=== PATIENT | male | born 1975 | race Caucasian/White ===

== ENCOUNTER → 2016-12-19 | Outpatient (CLI) | payer BC ==
[~2016-12-19] MED LIST: HYDR-3729 PO
--- NOTE | 2016-12-19 11:09 | Diagnostic Imaging Report ---
Scrotal ultrasound. INDICATION: Dull pain and lump. FINDINGS: The right testicle is 4.6 x 3.0 x 3.5 cm. The left testicle is 4.7 x 3.0 x 3.4 cm. The testicles are fairly homogeneous with no focal mass. There is a right epididymal cyst measuring 1.9 cm and another smaller adjacent cyst measuring 0.8 cm. Both appear simple with no solid components. There are bilateral small hydroceles slightly more prominent on the right side. Arterial and venous waveforms are demonstrated over the testicles. IMPRESSION: Small bilateral hydroceles. Right epididymal cyst. Dictated by: Dictated on workstation # [id number]
== END ==
LOC: RAD 09:55
PROVIDERS: ATTEND Nurse Practitioner Family
DX: N43.3 Hydrocele, unspecified (principal); N50.3 Cyst of epididymis
CPT/HCPCS: 76870

== ENCOUNTER 2017-08-31 18:27 | Emergency (ER) | payer BC ==
[~2017-08-31] VITALS: Ht 175.3 cm; Wt 113.4 kg
--- OUTSIDE RECORDS SUMMARY | 2017-08-31 18:32 | XMS REPORT | Continuity of Care Document ---
Author Author [facility] Organization [facility] Address Unknown Phone Unavailable Allergies Active Description Code Type Severity Reaction Onset Reported/Identified Relationship to Patient Clinical Status Yes No Known Drug Allergies [id number] Drug Allergy Unknown N/A 08/08/2014 Medications There is no data. Problems Date Dx Coded Attending Type Code Diagnosis Diagnosed By 08/11/2014 HANH HOLLAND MD Ot 706.2 08/19/2014 SKYLER PARRA, HANH Ot 239.89 08/19/2014 SKYLER PARRA, TAKAAKI Ot V72.84 08/19/2014 SKYLER PARRA, TAKAAKI Ot V74.8 08/19/2014 SKYLER PARRA, TAKTEA Ot 239.89 08/19/2014 SKYLER PARRA, TAKAAKI Ot V72.84 08/19/2014 SKYLER PARRA, KATYKI Ot V74.8 12/27/2016 JONI WALKER WATER SUPERINTENDENT Ot N43.3 HYDROCELE, UNSPECIFIED 12/27/2016 JONI WALKER WATER SUPERINTENDENT Ot N50.3 CYST OF EPIDIDYMIS 12/29/2016 JONI WALKER WATER SUPERINTENDENT Ot N43.3 HYDROCELE, UNSPECIFIED 12/29/2016 JONI WALKER WATER SUPERINTENDENT Ot N50.3 CYST OF EPIDIDYMIS 01/08/2017 JONI WALKER WATER SUPERINTENDENT Ot N43.3 HYDROCELE, UNSPECIFIED 01/08/2017 JONI WALKER WATER SUPERINTENDENT Ot N50.3 CYST OF EPIDIDYMIS Procedures There is no data. Results There is no data. Encounters ACCT No. Visit Date/Time Discharge Status Pt. Type Provider Facility Loc./Unit Complaint [id number] 12/19/2016 09:55:00 12/19/2016 23:59:59 CLS Outpatient JONI WALKER APRN [facility] RAD RT TESTICULAR PAIN, RT TESTICULAR MASS [id number] 08/11/2014 07:24:00 08/11/2014 11:40:00 DIS Outpatient HANH HOLLAND MD [facility] [id number] 08/08/2014 07:53:00 08/08/2014 23:59:59 CLS Outpatient HANH HOLLAND MD [facility] PREOP
--- NOTE | 2017-08-31 20:07 | Diagnostic Imaging Report ---
INDICATION: Left knee pain COMPARISON: None FINDINGS: 3 views of the left knee demonstrate no fracture or dislocation. The articular surfaces are age-appropriate. There is no joint effusion. No foreign body. IMPRESSION: Negative left knee. Dictated by: Dictated on workstation # [id number]
[2017-08-31 20:17] LABS: BASOPHILS % (AUTO) 0 % (0-10); EOSINOPHILS # (AUTO) 0.2 10^3/uL (0.0-0.3); EOSINOPHILS % (AUTO) 2 % (0-10); HEMATOCRIT 47 % (40-54); HEMOGLOBIN 16.4 G/DL (13.3-17.7); LYMPHOCYTES # (AUTO) 2.5 X 10^3 (1.0-4.0); LYMPHOCYTES % (AUTO) 27 % (12-44); MEAN CORPUSCULAR HEMOGLOBIN 31 PG (25-34); MEAN CORPUSCULAR HGB CONC 35 G/DL (32-36); MEAN CORPUSCULAR VOLUME 89 FL (80-99); MEAN PLATELET VOLUME 9.5 FL (7.4-10.4); MONOCYTES % (AUTO) 11 % (0-12); NEUTROPHILS # (AUTO) 5.5 X 10^3 (1.8-7.8); NEUTROPHILS % (AUTO) 59 % (42-75); PLATELET COUNT 168 10^3/uL (130-400); RED BLOOD COUNT 5.25 10^6/uL (4.35-5.85); RED CELL DISTRIBUTION WIDTH 12.6 % (10.0-14.5); WHITE BLOOD COUNT 9.3 10^3/uL (4.3-11.0)
--- NOTE | 2017-08-31 20:20 | ED Lower Extremity ---
General Chief Complaint: Lower Extremity Stated Complaint: L KNEE PAIN/SWELLING Nursing Triage Note: Pt c/o L knee pain and swelling x2 days. Pt reports pain continues to get worse. Pt reports mild improvement w/ ibuprofen use. Nursing Sepsis Screen: No Definite Risk Source: patient Exam Limitations: no limitations History of Present Illness Time seen by provider: 20:17 Initial Comments To ER with left knee pain and swelling for 2 days at the inferior anterior aspect of the knee. 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 No known inciting event. Never had this happen before. He is only here [facility] and would like to have this evaluated before he goes. Onset: just prior to arrival Severity: moderate Pain/Injury Location: left knee Allergies and Home Medications Allergies Coded Allergies: No Known Drug Allergies (Unverified , 08/08/14) Home Medications Hydrocodone/Acetaminophen 1 Each Tablet, 1-2 EACH PO Q4H, #30 Prescribed by: HANH HOLLAND on 08/11/14 1031 Constitutional: see HPI, No chills, No fever EENTM: see HPI Respiratory: no symptoms reported Cardiovascular: no symptoms reported Genitourinary: no symptoms reported Musculoskeletal: no symptoms reported Skin: no symptoms reported Past Ieosvkl-Fidbhq-Xwfjxo Hx Patient Social History Recent Foreign Travel: No Contact w/Someone Who Travel: No Recent Infectious Disease Expo: No Physical Exam Vital Signs Vital Sign - Last 12Hours 08/31/17 19:31 Temp 98.9 Pulse 105 Resp 18 B/P (MAP) 128/85 (99) Pulse Ox 97 O2 Delivery Room Air Capillary Refill : Less Than 3 Seconds General Appearance: WD/WN, no apparent distress, other (he is ambulatory with a limp) HEENT: PERRL/EOMI, normal ENT inspection Neck: non-tender, full range of motion Respiratory: no respiratory distress, no accessory muscle use Gastrointestinal: non tender, soft Hips: bilateral hip non-tender, bilateral hip normal inspection, bilateral hip normal range of motion Legs: bilateral leg non-tender, bilateral leg normal inspection, bilateral leg normal range of motion Knees: left knee pain, left knee soft tissue tenderness, left knee swelling ( palpable fluctuance with no erythema of the overlying skin at the pes anserine bursa) Ankles: bilateral ankle non-tender, bilateral ankle normal inspection, bilateral ankle normal range of motion Feet: bilateral foot non-tender, bilateral foot normal range of motion, bilateral foot no evidence of injury Neurologic/Tendon: normal sensation, normal motor functions Neurologic/Psychiatric: alert, normal mood/affect, oriented x 3 Skin: normal color, warm/dry Additional Procedures : Additional Procedures: Arthrocentesis Aspirating Progress The entire knee was prepped with Betadine scrub. Under sterile technique, The lateral aspect of the left pinna is answering bursa was anesthetized with 2 mL of 2% lidocaine without epinephrine. An 18-gauge needle was inserted and a very small amount about 1 mL of serosanguineous clear fluid was aspirated. Site was covered with a Band-Aid. Progress/Results/Core Measures Results/Orders Lab Results Laboratory Tests Test 08/31/17 20:09 Range/Units White Blood Count 9.3 4.3-11.0 10^3/uL Red Blood Count 5.25 4.35-5.85 10^6/uL Hemoglobin 16.4 13.3-17.7 G/DL Hematocrit 47 40-54 % Mean Corpuscular Volume 89 80-99 FL Mean Corpuscular Hemoglobin 31 25-34 PG Mean Corpuscular Hemoglobin Concent 35 32-36 G/DL Red Cell Distribution Width 12.6 10.0-14.5 % Platelet Count 168 130-400 10^3/uL Mean Platelet Volume 9.5 7.4-10.4 FL Neutrophils (%) (Auto) 59 42-75 % Lymphocytes (%) (Auto) 27 12-44 % Monocytes (%) (Auto) 11 0-12 % Eosinophils (%) (Auto) 2 0-10 % Basophils (%) (Auto) 0 0-10 % Neutrophils # (Auto) 5.5 1.8-7.8 X 10^3 Lymphocytes # (Auto) 2.5 1.0-4.0 X 10^3 Monocytes # (Auto) 1.0 0.0-1.0 X 10^3 Eosinophils # (Auto) 0.2 0.0-0.3 10^3/uL Basophils # (Auto) 0.0 0.0-0.1 10^3/uL Erythrocyte Sedimentation Rate 2 0-15 MM/HR Sodium Level 141 135-145 MMOL/L Potassium Level 4.1 3.6-5.0 MMOL/L Chloride Level 106 98-107 MMOL/L Carbon Dioxide Level 24 21-32 MMOL/L Anion Gap 11 5-14 MMOL/L Blood Urea Nitrogen 16 7-18 MG/DL Creatinine 0.95 0.60-1.30 MG/DL Estimat Glomerular Filtration Rate > 60 BUN/Creatinine Ratio 17 Glucose Level 92 70-105 MG/DL Calcium Level 8.9 8.5-10.1 MG/DL C-Reactive Protein High Sensitivity 0.23 0.00-0.50 MG/DL My Orders Orders - ERNIE RIVERO APRN Cbc With Automated Diff (08/31/17 19:42) Erythrocyte Sedimentation Rate (08/31/17 19:42) Hs C Reactive Protein (08/31/17 19:42) Basic Metabolic Panel (08/31/17 19:42) Knee, Left, 3 Views (08/31/17 19:43) Body Fluid Culture (08/31/17 20:14) Crystals,Body Fluid (08/31/17 20:14) Lidocaine 2% Injection 20 Ml (Xylocaine (08/31/17 20:30) Vital Signs/I&O Vital Sign - Last 12Hours 08/31/17 19:31 Temp 98.9 Pulse 105 Resp 18 B/P (MAP) 128/85 (99) Pulse Ox 97 O2 Delivery Room Air Blood Pressure Mean: 99 Departure Impression Impression: Primary Impression: Pes anserinus bursitis of left knee Disposition: 01 HOME, SELF-CARE Condition: Stable Departure-Patient Inst. Decision time for Depature: 20:44 Referrals: DAT ADAMES DO (PCP) Primary Care Physician AMAYA HANSON MD (Family) Primary Care Physician Patient Instructions: Bursitis (DC) Add. Discharge Instructions: 1. Ice compress to this area 2. Pain medication as needed 3. Antibiotics as directed All discharge instructions reviewed with patient and/or family. Voiced understanding. Scripts Hydrocodone/Acetaminophen (Steele 5-325 Tablet) 1 Each Tablet 1 EACH PO Q4H Y for PAIN-MODERATE TO SEVERE, #20 TAB Prov: ERNIE RIVERO APRN 08/31/17 ERNIE RIVERO APRN Aug 31, 2017 20:20
[2017-08-31] MEDS ORDERED: LIDOCAINE 2% 20 ML (XYLOCAINE) VIAL INJ ONE (20:30)
[2017-08-31 20:34] LABS: BUN/CREATININE RATIO 17; CALCIUM 8.9 MG/DL (8.5-10.1); CARBON DIOXIDE 24 MMOL/L (21-32); CHLORIDE 106 MMOL/L (98-107); CREATININE SERUM 0.95 MG/DL (0.60-1.30); GFR ESTIMATED > 60; GLUCOSE 92 MG/DL (70-105); POTASSIUM 4.1 MMOL/L (3.6-5.0); SODIUM 141 MMOL/L (135-145)
[2017-08-31 20:36] LABS: ERYTHROCYTE SEDIMENTATION RATE 2 MM/HR (0-15)
[2017-08-31] MEDS ORDERED: RX-DOXYCYCLINE 100 MG (VIBRAMYCIN) TAB PPK#2 PO STA (20:42)
[2017-08-31] MEDS ORDERED: RX-HYDROCODONE/APAP 5/325 MG #4 TAB PK PO PRN (20:45)
[2017-08-31] MEDS ORDERED: HYDR-757 PO (20:45)
[2017-08-31 21:38] VITALS: BP 122/80
== END 2017-08-31 21:38 | disposition home or self-care (01) ==
LOC: EDUNIT# 18:27 → ER 18:29
DX: M70.52 Other bursitis of knee, left knee (principal)
CPT/HCPCS: 20610; 36415; 73562; 80048; 85025; 85652; 86141; 87070; 87205; 89060; 99283

== ENCOUNTER → 2018-01-29 | Outpatient (CLI) | payer BC ==
[~2018-01-29] MED LIST changes: +HYDR-757 PO
--- NOTE | 2018-01-29 07:58 | Diagnostic Imaging Report ---
INDICATION: Right upper quadrant pain and elevated liver function test. Ultrasound of the abdomen performed in routine fashion. FINDINGS: The liver shows diffuse increased echogenicity compatible with fatty infiltration. Liver is difficult to penetrate and visualization is therefore limited but no focal liver lesion is seen. The gallbladder shows no stones or wall thickening. Common duct is obscured by overlying gas in the dense appearance of the liver. Pancreas is not seen due to overlying gas. The spleen was top limits normal in size measuring 12.2 cm in length. There is no focal splenic lesion. Visualized portions of the aorta and IVC were normal. Right kidney was unremarkable and measured 11.0 cm in length. Left kidney was unremarkable measuring 11.7 cm in length. There is no ascites. IMPRESSION: Dense echogenic liver compatible with fatty infiltration. No gallbladder pathology. Common duct not well-seen due to overlying gas. No other significant abnormality. Spleen is top limits normal in size. Dictated by: Dictated on workstation # [id number]
== END ==
LOC: RAD 06:44
PROVIDERS: ATTEND Internal Medicine
DX: R10.11 Right upper quadrant pain (principal); R74.8 Abnormal levels of other serum enzymes
CPT/HCPCS: 76700

== ENCOUNTER → 2018-02-16 | Outpatient (CLI) | payer BC ==
[~2018-02-16] MED LIST changes: +CATHETER FLUSH 10 ML SYR IV PRN
== END ==
LOC: CARD 12:35
PROVIDERS: ATTEND Internal Medicine
DX: Z53.9 Procedure and treatment not carried out, unspecified reason (principal)

== ENCOUNTER 2021-11-17 18:27 | Emergency (ER) | payer BC ==
[~2021-11-17] VITALS: Ht 175 cm; Wt 111.0 kg
[~2021-11-17 18:27] MED LIST changes: -CATHETER FLUSH 10 ML SYR IV PRN; +HYDR-4226 PO; -HYDR-757 PO
[2021-11-17] MEDS ORDERED: NS IV 1000 ML 1,000 ML IV SCH ×2 (19:15→20:45)
--- NOTE | 2021-11-17 19:25 | ED General ---
General Stated Complaint: FREQUENT URINATION,DIZZINESS,BLURRED VISION X 3 WK Source of Information: Patient History of Present Illness Date Seen by Provider: Nov 17, 2021 Time Seen by Provider: 19:14 Initial Comments PT ARRIVES VIA POV FROM [facility]. PT SENT HERE FOR ELEVATED BLOOD SUGAR STATES FOR THE LAST 3 WEEKS HE HAS HAD BLURRY VISION, URINARY FREQUENCY AND THIRST WENT TO EYE DR 2 WEEKS AGO AND AGAIN YESTERDAY AND WAS ONLY DX WITH DRY EYES--NO IMPROVEMENT WITH EYE DROPS. STATES HE HAS LOST 9 LBS UNINTENTIONALLY IN THE LAST 3 WEEKS, AND HAS BEEN EATING ALOT. WEIGHT 3 WEEKS AGO WAS 265, AND TODAY WAS 256 STATES HE FEELS COMPLETELY FINE OTHERWISE MOM, DAD, BROTHER ARE ALL DIABETIC, SO HE DECIDED TO CHECK HIS BLOOD SUGAR TODAY AND IT WAS 304, SO HE WENT TO [facility] AND IT WAS ALSO IN THE 300'S THERE, SO ADVISED TO COME TO ER. Allergies and Home Medications Allergies Coded Allergies: No Known Drug Allergies (Unverified , 08/08/14) Patient Home Medication List Hydrocodone/Acetaminophen (Lortab 5-325 mg Tablet) 1 Each Tablet, 1-2 EACH PO Q4H Prescribed by: HANH HOLLAND on 08/11/14 1031 Hydrocodone/Acetaminophen (Hydrocodone/Acetaminophen 5 MG/325 MG TAB) 1 Each Tablet, 1 EACH PO Q4H PRN for PAIN-MODERATE TO SEVERE Prescribed by: ERNIE RIVERO on 08/31/172044 Metformin HCl (Metformin HCl) 500 Mg Tablet, 500 MG PO DAILY Prescribed by: ALVERTO DELEON on 11/17/212126 Past Rgkjeio-Zoukty-Vpccez Hx Seasonal Allergies Seasonal Allergies: No Past Medical History Surgeries: Yes (RIGHT ANKLE SURGERY) Respiratory: No Cardiac: No Neurological: No Genitourinary: No Gastrointestinal: Yes (IBS) Musculoskeletal: No Endocrine: No Integumentary: No Blood Disorders: No Physical Exam Vital Signs Capillary Refill : Height, Weight, BMI Height: 5'9.00" Weight: 250lbs. oz. 113.512778if; BMI Method:Stated Focused Exam Lactate Level 11/17/21 19:53: Lactic Acid Level 0.96 Lactic Acid Level Laboratory Tests Test 11/17/21 19:53 Lactic Acid Level 0.96 MMOL/L (0.50-2.00) Progress/Results/Core Measures Suspected Sepsis SIRS Temperature: Pulse: Respiratory Rate: Laboratory Tests 11/17/21 19:27: White Blood Count 6.9 Blood Pressure / Mean: 11/17/21 19:53: Lactic Acid Level 0.96 Laboratory Tests 11/17/21 19:27: Creatinine 1.21, Platelet Count 184, Total Bilirubin 0.8 Results/Orders Lab Results Laboratory Tests Test 11/17/21 19:27 11/17/21 19:35 11/17/21 19:38 11/17/21 19:53 Range/Units White Blood Count 6.9 4.3-11.0 10^3/uL Red Blood Count 5.20 4.30-5.52 10^6/uL Hemoglobin 16.6 13.3-17.7 g/dL Hematocrit 45 40-54 % Mean Corpuscular Volume 87 80-99 fL Mean Corpuscular Hemoglobin 32 25-34 pg Mean Corpuscular Hemoglobin Concent 37 H 32-36 g/dL Red Cell Distribution Width 11.8 10.0-14.5 % Platelet Count 184 130-400 10^3/uL Mean Platelet Volume 10.1 9.0-12.2 fL Immature Granulocyte % (Auto) 0 % Neutrophils (%) (Auto) 56 42-75 % Lymphocytes (%) (Auto) 31 12-44 % Monocytes (%) (Auto) 8 0-12 % Eosinophils (%) (Auto) 3 0-10 % Basophils (%) (Auto) 1 0-10 % Neutrophils # (Auto) 3.9 1.8-7.8 10^3/uL Lymphocytes # (Auto) 2.2 1.0-4.0 10^3/uL Monocytes # (Auto) 0.6 0.0-1.0 10^3/uL Eosinophils # (Auto) 0.2 0.0-0.3 10^3/uL Basophils # (Auto) 0.1 0.0-0.1 10^3/uL Immature Granulocyte # (Auto) 0.0 0.0-0.1 10^3/uL Sodium Level 134 L 135-145 MMOL/L Potassium Level 4.0 3.6-5.0 MMOL/L Chloride Level 102 98-107 MMOL/L Carbon Dioxide Level 18 L 21-32 MMOL/L Anion Gap 14 5-14 MMOL/L Blood Urea Nitrogen 16 7-18 MG/DL Creatinine 1.21 0.60-1.30 MG/DL Estimat Glomerular Filtration Rate 75 BUN/Creatinine Ratio 13 Glucose Level 388 H 70-105 MG/DL Calcium Level 9.7 8.5-10.1 MG/DL Corrected Calcium 9.6 8.5-10.1 MG/DL Magnesium Level 1.7 1.6-2.4 MG/DL Total Bilirubin 0.8 0.1-1.0 MG/DL Aspartate Amino Transf (AST/SGOT) 34 5-34 U/L Alanine Aminotransferase (ALT/SGPT) 73 H 0-55 U/L Alkaline Phosphatase 102 40-136 U/L Total Protein 6.8 6.4-8.2 GM/DL Albumin 4.1 3.2-4.5 GM/DL Amylase Level 64 25-125 U/L Lipase 70 8-78 U/L Beta-Hydroxybutyrate (Chem panel) 0.30 H 0.00-0.27 MMOL/L Urine Color YELLOW Urine Clarity CLEAR Urine pH 6.0 5-9 Urine Specific [place] 1.020 1.016-1.022 Urine Protein NEGATIVE NEGATIVE Urine Glucose (UA) 3+ H NEGATIVE Urine Ketones 1+ H NEGATIVE Urine Nitrite NEGATIVE NEGATIVE Urine Bilirubin NEGATIVE NEGATIVE Urine Urobilinogen 0.2 < = 1.0 MG/DL Urine Leukocyte Esterase NEGATIVE NEGATIVE Urine RBC (Auto) NEGATIVE NEGATIVE Urine RBC NONE /HPF Urine WBC NONE /HPF Urine Crystals PRESENT H /LPF Urine Amorphous Sediment RARE NIK URATES H /LPF Urine Bacteria NEGATIVE /HPF Urine Casts NONE /LPF Urine Mucus NEGATIVE /LPF Urine Culture Indicated NO Glucometer 369 H 70-110 MG/DL Lactic Acid Level 0.96 0.50-2.00 MMOL/L Test 11/17/21 21:03 Range/Units Blood Gas Puncture Site LEFT RADIAL Blood Gas Patient Temperature 37.0 Arterial Blood pH 7.37 7.37-7.43 Arterial Blood Partial Pressure CO2 39 35-45 MMHG Arterial Blood Partial Pressure O2 80 79-93 MMHG Arterial Blood HCO3 22 L 23-27 MMOL/L Arterial Blood Total CO2 23.3 21.0-31.0 MMOL/L Arterial Blood Oxygen Saturation 95 94-100 % Arterial Blood Base Excess -2.3 -2.5-2.5 MMOL/L Jules Test YES-POS Blood Gas Ventilator Setting NO Blood Gas Inspired Oxygen ROOM AIR My Orders Orders - ALVERTO DELEON DO Accucheck Stat ONCE (11/17/21 19:09) Ed Iv/Invasive Line Start (11/17/21 19:09) Monitor-Rhythm Ecg Trace Only (11/17/21 19:09) Amylase (11/17/21 19:09) Cbc With Automated Diff (11/17/21 19:09) Comprehensive Metabolic Panel (11/17/21 19:09) Lactic Acid Analyzer (11/17/21:) Lipase (11/17/21:) Magnesium (11/17/21:) Ua Culture If Indicated (11/17/21 19:09) Ed Iv/Invasive Line Start (11/17/21 19:09) Ns Iv 1000 Ml (Sodium Chloride 0.9%) (11/17/21 19:15) Beta Hydroxybutyrate (11/17/21 19:25) Hemoglobin A1c (11/17/21 19:25) Ed Iv/Invasive Line Start (11/17/21 20:44) Ns Iv 1000 Ml (Sodium Chloride 0.9%) (11/17/21 20:45) Arterial Blood Gas (11/17/21 21:03) Accucheck Stat ONCE (11/17/21 21:28) Vital Signs/I&O Capillary Refill : Progress Note : Progress Note GIVEN IV FLUIDS REPEAT GLUCOSE 251 UNEVENTFUL ER STAY Departure Communication (Admissions) 2119--SPOKE WITH DR. SHEPARD, HOSPITALIST. HE ADVISES / AGREES THAT PT DOES NOT NEED ADMIT, AND WILL START ON METFORMIN AND HAVE PT FOLLOW UP WITH DR. ADAMES NEXT WEEK FOR FURTHER CARE. Impression Primary Impression: New onset type 2 diabetes mellitus Disposition: HOME, SELF-CARE Condition: Stable Departure-Patient Inst. Decision time for Depature: 22:05 Referrals: DAT ADAMES DO (PCP/Family) Primary Care Physician Patient Instructions: High Blood Sugar, Adult (DC), The ABCs of Diabetes, Counting Carbs If You Do Not Use Insulin, Blood Glucose Monitoring, Type 2 Diabetes (DC) Add. Discharge Instructions: GET A GLUCOMETER AND CHECK YOUR BLOOD SUGAR AT LEAST 3 TIMES A DAY--ON WAKING AND BEFORE EACH MEAL--AND KEEP DIARY OF YOUR READINGS FOLLOW 2000 CALORIE, LOW CARBOHYDRATE, HIGH PROTEIN DIET. YOUR DR CAN ARRANGE FOR YOU TO SEE A SPOUT LINER FOR DIABETIC TEACHING. FOLLOW UP WITH DR. ADAMES IN 3-4 DAYS FOR FURTHER CARE--CALL ON FRIDAY TO SCHEDULE APPOINTMENT RETURN TO ER IF SYMPTOMS WORSEN Scripts Metformin HCl (Metformin HCl) 500 Mg Tablet 500 MG PO DAILY, #30 TAB Prov: ALVERTO DELEON DO 11/17/21 ALVERTO DELEON DO Nov 17, 2021 19:25
[2021-11-17 19:34] LABS: BASOPHILS # (AUTO) 0.1 10^3/uL (0.0-0.1); BASOPHILS % (AUTO) 1 % (0-10); EOSINOPHILS # (AUTO) 0.2 10^3/uL (0.0-0.3); EOSINOPHILS % (AUTO) 3 % (0-10); HEMATOCRIT 45 % (40-54); HEMOGLOBIN 16.6 g/dL (13.3-17.7); LYMPHOCYTES # (AUTO) 2.2 10^3/uL (1.0-4.0); LYMPHOCYTES % (AUTO) 31 % (12-44); MEAN CORPUSCULAR HEMOGLOBIN 32 pg (25-34); MEAN CORPUSCULAR HGB CONC 37 g/dL (32-36); MEAN CORPUSCULAR VOLUME 87 fL (80-99); MEAN PLATELET VOLUME 10.1 fL (9.0-12.2); MONOCYTES # (AUTO) 0.6 10^3/uL (0.0-1.0); MONOCYTES % (AUTO) 8 % (0-12); NEUTROPHILS # (AUTO) 3.9 10^3/uL (1.8-7.8); NEUTROPHILS % (AUTO) 56 % (42-75); PLATELET COUNT 184 10^3/uL (130-400); WHITE BLOOD COUNT 6.9 10^3/uL (4.3-11.0)
[2021-11-17 19:40] LABS: BILIRUBIN,URINE NEGATIVE (NEGATIVE); CLARITY,URINE CLEAR; COLOR,URINE YELLOW; GLUCOSE, URINE (UA) 3+ (NEGATIVE); KETONES,URINE 1+ (NEGATIVE); LEUKOCYTE ESTERASE ,URINE NEGATIVE (NEGATIVE); NITRITE,URINE NEGATIVE (NEGATIVE); PROTEIN,URINE NEGATIVE (NEGATIVE)
[2021-11-17 19:42] LABS: ALBUMIN 4.1 GM/DL (3.2-4.5)
[2021-11-17 19:43] LABS: CALCIUM 9.7 MG/DL (8.5-10.1)
[2021-11-17 19:44] LABS: TOTAL PROTEIN 6.8 GM/DL (6.4-8.2)
[2021-11-17 19:46] LABS: BILIRUBIN,TOTAL 0.8 MG/DL (0.1-1.0)
[2021-11-17 19:48] LABS: CREATININE SERUM 1.21 MG/DL (0.60-1.30)
[2021-11-17 19:51] LABS: MAGNESIUM 1.7 MG/DL (1.6-2.4)
[2021-11-17 19:54] LABS: AMORPHOUS SEDIMENT,UR RARE AMOR URATES /LPF; BACTERIA,URINE NEGATIVE /HPF
[2021-11-17 21:18] LABS: ABG BASE EXCESS -2.3 MMOL/L (-2.5-2.5); ABG OXYGEN SATURATION 95 % (94-100); ABG PCO2 39 MMHG (35-45); ABG PH 7.37 (7.37-7.43); ABG PO2 80 MMHG (79-93); ABG TCO2 23.3 MMOL/L (21.0-31.0); ALLENS TEST YES-POS; INSPIRED O2 ROOM AIR; VENTILATOR NO
[2021-11-17] MEDS ORDERED: METF-397 PO (21:27)
[2021-11-17 22:50] VITALS: BP 128/88
== END 2021-11-17 22:46 | disposition home or self-care (01) ==
LOC: EDUNIT# 18:27 → ER 18:29
DX: E11.9 Type 2 diabetes mellitus without complications (principal)
CPT/HCPCS: 36415; 80053; 81000; 82010; 82150; 82805; 82947; 83036; 83605; 83690; 83735; 85025; 93041

== ENCOUNTER → 2022-10-14 | Outpatient (CLI) | payer BC ==
[~2022-10-14] MED LIST changes: +METF-397 PO
--- NOTE | 2022-10-14 10:40 | Diagnostic Imaging Report ---
PROCEDURE: MR imaging left lower extremity without contrast. TECHNIQUE: Multiplanar, multisequence non contrast enhanced MR imaging of the left lower extremity was accomplished. INDICATION: Plantar fascial tear of the left foot COMPARISON: None FINDINGS: No acute fracture is seen in the left foot. Alignment is normal. There is mild degenerative change at the 4th tarsometatarsal joint. No joint effusion is seen. The anterior posterior syndesmotic ligaments are intact. The anterior posterior talofibular ligaments are intact. The deep fibers of the deltoid ligament are intact. The spring ligament appears intact. The sinus tarsi demonstrates normal fat signal. There is thickening of the plantar fascia at the origin of the central component measuring up to 1 cm in size. There is increased T2 signal which may represent low-grade partial tearing. No tear is seen of the fascia more distally in the area of the MRI marker. The Achilles tendon is intact. The peroneal tendons demonstrate mildly increased fluid in the sheath but no tear is seen. The flexor tendons are intact. The extensor tendons are intact. There is no muscular atrophy. No soft tissue masses or fluid collections are seen. IMPRESSION: 1. Thickening and likely low-grade partial tearing at the origin of the central plantar fascia, consistent with plantar fasciitis. No tear is seen more distally in the area of the pain marker. 2. Mild peroneal tenosynovitis. 3. Mild degenerative changes in the 4th tarsometatarsal joint. Dictated by: Dictated on workstation # [id number]
== END ==
LOC: RAD 07:46
PROVIDERS: ATTEND Podiatrist Foot & Ankle Surgery
DX: S96.912A Strain of unspecified muscle and tendon at ankle and foot level, left foot, initial encounter (principal); X58.XXXA Exposure to other specified factors, initial encounter